=== PATIENT | male | born 1980 | race Caucasian/White ===

== ENCOUNTER 2017-11-07 13:27 | Emergency (ER) | payer OTHER ==
[~2017-11-07] VITALS: Ht 208.3 cm; Wt 156.0 kg
[2017-11-07] MEDS ORDERED: LOSARTAN-HCTZ1 EAC2 PO (13:39)
[2017-11-07 13:56] LABS: ABSOLUTE EOSINOPHILS 0.2 thou/uL (0.0-0.7); ABSOLUTE LYMPHOCYTES 2.1 thou/uL (0.8-5.3); ABSOLUTE MONOCYTES 0.6 thou/uL (0.0-1.2); ABSOLUTE NEUTROPHILS 5.4 thou/uL (1.6-8.1); BASOPHILS 0.5 %; EOSINOPHILS 2.4 %; HEMATOCRIT 45.6 % (42.0-52.0); HEMOGLOBIN 15.5 gm/dL (14.0-18.0); LYMPHOCYTES 24.8 %; MCH 26.7 pg (26.0-34.0); MCV 78.7 fL (80.0-100.0); MONOCYTES 6.6 %; MPV 7.3 fl. (7.2-11.1); NUCLEATED RBCS 0 /100WBC; PLATELET COUNT* 240 thou/uL (150-400); POLYS 65.7 %; RDW-CV 14.1 % (10.5-14.5); WBC 8.3 thou/uL (4.0-11.0)
[2017-11-07 14:06] LABS: APTT 35.5 Seconds (25.0-31.3); PROTIME 9.9 Seconds (9.20-11.50)
[2017-11-07 14:11] LABS: ANION GAP 7 mmol/L (7-16); BUN 15 mg/dL (7-18); CALCIUM 9.1 mg/dL (8.5-10.1); CHLORIDE 102 mmol/L (98-107); CO2 31 mmol/L (21-32); GLUCOSE 125 mg/dL (70-99); POTASSIUM 3.6 mmol/L (3.5-5.1); SODIUM 140 mmol/L (136-145)
[2017-11-07 14:29] LABS: ALBUMIN 4.3 g/dL (3.4-5.0); ALKALINE PHOSPHATASE 113 U/L (46-116); CK-MB MASS 1.5 ng/mL (<0.5-3.6); LIPASE 150 U/L (73-393); NT-PRO BRAIN NAT PEPTIDE 72 pg/mL (<300); SGOT 26 U/L (15-37); SGPT 36 U/L (30-65); TOTAL BILIRUBIN 0.7 mg/dL (<0.1-1.0); TOTAL PROTEIN 8.3 g/dL (6.4-8.2); TROPONIN-I LEVEL <0.06 ng/mL (<0.06)
[2017-11-07 15:18] VITALS: BP 146/96
--- NOTE | 2017-11-07 18:22 | EKG ---
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: : 1980 Requested By: Sonu Bailey Order Number: [id number] MD: Elie Fountain Measurements Intervals [place] Rate: 89 P: 18 IA: 162 QRS: -11 QRSD: 104 T: 110 QT: 335 QTc: 408 Interpretive Statements Sinus rhythm Abnormal R-wave progression, early transition LVH with secondary repolarization abnormality No previous ECG available for comparison Electronically Signed On 11-07-2017 18:21:49 CDT by Elie Fountain [email or web address] <ELECTRONICALLY SIGNED> By: Elie Fountain MD, [facility] 11/07/17 1821 1335 1335 Elie Fountain MD, FACC /EPI
== END 2017-11-07 15:19 | disposition home or self-care (01) ==
LOC: M.ERS 13:27
PROVIDERS: Family Medicine
DX: I10 Essential (primary) hypertension (principal)

== ENCOUNTER → 2017-11-21 | Outpatient (CLI) | payer OTHER ==
[~2017-11-21] MED LIST: LOSARTAN-HCTZ1 EAC2 PO
--- NOTE | 2017-11-21 12:47 | 2DMMODE ---
[place] [address] 2 D/M-MODE ECHOCARDIOGRAM Name: ANTHONY CROOKS Hawk Room: [facility]#: [id number] Admission: 11/21/17 Attend Phys: Suyapa Jerry Discharge: Date of : 82 Date of Service: 11/21/17 1247 Report #: [id number] THIS REPORT FOR: //name// APPROVED REPORT Study performed: 11/21/2017 10:29:34 EXAM: Comprehensive 2D, Doppler, and color-flow Echocardiogram Patient Location: Out-Patient Status: routine BSA: 2.70 HR: 88 bpm BP: 160/105 mmHg Other Information Study Quality: Fair Indications Cardiomegaly 2D Dimensions IVSd: 10.47 (7-11mm) LVOT Diam: 23.59 (18-24mm) LVDd: 70.17 mm PWd: 6.01 (7-11mm) Ascending Ao: 34.42 (22-36mm) LVDs: 36.60 (25-40mm) Aortic Root: 32.69 mm Volumes Left Atrial Volume (Systole) LA ESV Index: 18.70 mL/m2 Aortic Valve AoV Peak Eliseo.: 1.31 m/s AO Peak Gr.: 6.84 mmHg LVOT Max P.55 mmHg AO Mean Gr.: 4.17 mmHg LVOT Mean P.25 mmHg LVOT Max V: 0.80 m/s AO V2 VTI: 24.90 cm LVOT Mean V: 0.52 m/s LUANNE (VTI): 2.76 cm2 LVOT V1 VTI: 15.70 cm Mitral Valve E/A Ratio: 0.78 MV Decel. Time: 223.77 ms MV E Max Eliseo.: 0.62 m/s MV PHT: 64.89 [place] [address] 2 D/M-MODE ECHOCARDIOGRAM Name: DAKSHAANTHONY T Room: [facility]#: [id number] Admission: 11/21/17 Attend Phys: Suyapa Jerry Discharge: Date of : 82 Date of Service: 11/21/17 1247 Report #: [id number] MVA (PHT): 3.39 cm2 TDI E/Lateral E': 6.89 E/Medial E': 6.20 Medial E' Eliseo.: 0.10 m/s Lateral E' Eliseo.: 0.09 m/s Pulmonary Valve PV Peak Eliseo.: 1.06 m/s PV Peak Gr.: 4.52 mmHg Left Ventricle The left ventricle is normal size. There is global hypokinesis of the left ventricle. There is normal left ventricular wall thickness. Left ventricular systolic function is mildly decreased. LVEF is 40-45%. Right Ventricle The right ventricle is normal size. The right ventricular systolic function is normal. Atria The left atrium size is normal. The right atrium size is normal. Aortic Valve The aortic valve is normal in structure. No aortic regurgitation is present. There is no aortic valvular stenosis. Mitral Valve The mitral valve is normal in structure. There is no mitral valve regurgitation noted. No evidence of mitral valve stenosis. Tricuspid Valve The tricuspid valve is normal in structure. Trace tricuspid regurgitation. Pulmonic Valve Pulmonic valve is not well visualized. There is no pulmonic valvular regurgitation. Great Vessels The aortic root is normal in size. IVC is normal in size and collapses >50% with inspiration. Pericardium There is no [place] [address] 2 D/M-MODE ECHOCARDIOGRAM Name: ANTHONY CROOKS Room: [facility] Wu#: [id number] Admission: 11/21/17 Attend Phys: Suyapa Jerry Discharge: Date of : 82 Date of Service: 11/21/17 124 Report #: [id number] <Conclusion> There is global hypokinesis of the left ventricle. LVEF is 40-45%. <ELECTRONICALLY SIGNED> By: Elie Fountain MD, FACC 11/21/17 1247 1247 1247 Elie Fountain MD, FACC /INF
== END ==
LOC: M.CRD 10:00
DX: I51.7 Cardiomegaly (principal)

== ENCOUNTER → 2018-02-06 | Outpatient (CLI) | payer OTHER ==
--- NOTE | 2018-02-14 13:20 | SLEEP ---
[address] [address] SLEEP STUDY REPORT Name: DAKSHAANTHONY T Room: [facility]#: [id number] Admission: 02/06/18 Attend Phys: Tiffanie Walsh RN Discharge: Date of : 82 Report #: [id number] THIS REPORT FOR: //name// CC: Chris GILMAN This study has been reviewed in its entirety by a board certified sleep specialist DATE OF SERVICE: 02/06/2018 REFERRING PHYSICIAN: MUKUL Banks. The patient is a 37-year-old who weighs 330 pounds with a BMI of 43.5. The patient underwent home sleep study performed at [facility]. Total recording time was 468 minutes. During the night of study, the patient had 564 obstructive apneas, 1 central apnea and no mixed apneas and 102 hypopneas. The patient's apnea hypopnea index was 85 per hour. No supine sleep was recorded. Nocturnal oximetry study revealed an average oxygen saturation of 93%, lowest of 76%. 86 minutes were spent at an oxygen saturation less than 90% and 19 minutes with oxygen saturation of less than 85%. Mean heart rate was 65 beats per minute with a maximum 115 beats per minute. IMPRESSION: 1. Severe sleep apnea-hypopnea syndrome with an AHI of 85 per hour. 2. [id number] nocturnal hypoxia secondary to obstructive sleep apnea. RECOMMENDATIONS: 1. The patient would benefit from in-lab CPAP titration study. 2. Once optimum CPAP pressure is achieved, then follow up in 4-6 weeks to assess compliance with CPAP and to document clinical improvement. 3. Weight loss is strongly advised. 4. 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 5. Cautioned regarding driving until symptoms of sleep apnea resolve with the use of CPAP. <ELECTRONICALLY SIGNED> By: Luis Laguna MD 02/14/18 1320 0741 [id number] Brian Laguna MD /nt
== END ==
LOC: M.SLEEPLAB 15:30
DX: G47.33 Obstructive sleep apnea (adult) (pediatric) (principal); R09.02 Hypoxemia; I42.8 Other cardiomyopathies; R40.0 Somnolence; R06.83 Snoring

== ENCOUNTER → 2018-02-13 | Outpatient (CLI) | payer OTHER ==
[2018-02-13 15:05] LABS: CALCIUM 9.1 mg/dL (8.5-10.1); CREATININE 1.1 mg/dL (0.6-1.3); POTASSIUM 3.6 mmol/L (3.5-5.1)
== END ==
LOC: M.LAB 14:41
PROVIDERS: Nurse Practitioner
DX: I10 Essential (primary) hypertension (principal)